=== PATIENT | male | born 1980 | race Hispanic/Latino ===

== ENCOUNTER 2019-01-03 15:04 | Day surgery (SDC) ==
[~2019-01-03 15:04] MED LIST: DIPRIVAN 1% ONE; ROBINUL ONE; XYLOCAINE-MPF 2% ONE
[2019-01-03] MEDS ORDERED: TORADOL ONE (15:14)
[2019-01-03] MEDS ORDERED: DECADRON ONE (15:14)
[2019-01-03] MEDS ORDERED: ZOFRAN ONE (15:14)
[2019-01-03] MEDS ORDERED: LR 1,000 ML ONE (15:56)
[2019-01-03] MEDS ORDERED: KEFZOL 1 GM/D5W 2 GM/100 ML IVPB ONE (15:56)
[2019-01-03] MEDS ORDERED: REGLAN ONE (16:24)
[2019-01-03] MEDS ORDERED: PEPCID ONE (16:24)
[2019-01-03] MEDS ORDERED: PERCOCET-5 ONE (19:40)
[2019-01-03 21:33] VITALS: BP 152/86
--- NOTE | 2019-01-06 10:54 | OPERATIVE NOTE ---
PROCEDURE DATE: 01/06/2019 SURGEON: Dr. Laureano Faulkner. PREOPERATIVE DIAGNOSIS: Left ureteral stone, flank pain. PROCEDURE: Cystoscopy, left ureteroscopy, laser lithotripsy, stone basket extraction. INDICATIONS: A 38-year-old male, who presented with significant left flank pain and had CT scan revealing a 6 mm left distal ureteral stone. He attempted to pass it with medical expulsive therapy but has been unable to do so and continues to have significant discomfort. He desires intervention. FINDINGS: Obstructive stone, which had jagged appearance of the left distal ureter. It was not sent off for analysis per patient's request due to lack of insurance coverage. No stent was placed as there was not a significant mucosal edema. PROCEDURE: After obtaining informed consent, patient was brought to the operating room. Perioperative antibiotics and laryngeal mask anesthesia were administered. He was placed in lithotomy position, prepped and draped in sterile fashion. A 21-Slovenian rigid cystoscope was used to gain access to the bladder. It was then examined in systematic fashion. He had no evidence of mucosal lesions, excessive trabeculations, or diverticula noted. We turned attention to the left ureteral orifice which was cannulated with PTFE wire which was in turn advanced to the level of the left renal pelvis. Rigid ureteroscope was then introduced alongside of the wire and 3 to 4 cm away from the ureteral orifice the stone was seen. It had fairly jagged appearance. A 0 Nitinol basket was then used to secure the stone. Holmium laser fiber was used with 365 micron diameter and energy settings of 1 joule and 10 hertz to break the stone up into small fragments. Those were then retrieved with 0 Nitinol basket. We then repeated ureteroscopy to the level of the left proximal ureter and there was no evidence of residual sizable stone fragments or ureteral injury. He had very mild mucosal edema and we elected not to place ureteral stent. The bladder was emptied, cystoscope was removed, he was extubated and taken to PACU for further recovery. ESTIMATED BLOOD LOSS: None. COMPLICATIONS: None. DISPOSITION: To PACU and subsequently home. with prescriptions for Pyridium 200 mg 3 times a day (#30). Percocet 7.5 mg p.r.n. (#15). Keflex 500 mg b.i.d. (6). cc: Laureano Faulkner MD
== END 2019-01-03 21:52 | disposition home or self-care (01) ==
LOC: OR 15:04 → 4N 15:04 → OR 21:52
PROVIDERS: ATTEND Urology
CPT/HCPCS: 76000; A9270; J0690; J1100; J1885; J2405; J7120